=== PATIENT | female | born 1955 | race Caucasian/White ===

== ENCOUNTER 2021-07-29 05:08 | Inpatient (IN) | payer MEDICARE, BC ==
[2021-07-27 14:17] LABS: CLARITY,URINE CLEAR (Clear); COLOR,URINE STRAW (Yellow); GLUCOSE, URINE NEGATIVE (Neg); KETONES,URINE NEGATIVE (Neg); LEUKOCYTE ESTERASE ,URINE NEGATIVE (Neg); NITRITES, URINE NEGATIVE (Neg); OCCULT BLOOD,URINE NEGATIVE (Neg); PROTEIN,URINE NEGATIVE (Neg); UA COLLECTION TYPE CLN CATCH MIDSTREAM; UROBILINOGEN,URINE 0.2 E.U/dL (0.2-1.0)
[2021-07-27 15:20] LABS: BASOPHILS % (AUTO) 0.2 % (0-1); EOSINOPHILS # (AUTO) 0.1 X10'3 (0-0.9); EOSINOPHILS % (AUTO) 1.1 % (0-6); LYMPHOCYTES # (AUTO) 2.6 X10'3 (1.1-4.8); LYMPHOCYTES % (AUTO) 29.5 % (21-51); MEAN CORPUSCULAR HEMOGLOBIN 33.1 PG (27.0-31.0); MEAN CORPUSCULAR HGB CONC 33.2 g/dL (33.0-36.5); MEAN CORPUSCULAR VOLUME 99.6 FL (78-98); MEAN PLATELET VOLUME 7.4 FL (7.4-10.4); MONOCYTES # (AUTO) 0.7 X10'3 (0-0.9); MONOCYTES % (AUTO) 7.7 % (2-12); NEUTROPHILS # (AUTO) 5.4 X10'3 (1.8-7.7); NEUTROPHILS % (AUTO) 61.5 % (42-75); PRE OP HEMATOCRIT 37.3 % (35.0-45.0); PRE OP HEMOGLOBIN 12.4 g/dL (12.0-16.0); PRE OP PLATELET COUNT 326 X10'3 (140-440); RED BLOOD COUNT 3.75 X10'6 (4.20-5.60); RED CELL DISTRIBUTION WIDTH 15.2 % (11.5-14.5)
[2021-07-27 15:29] LABS: PRE OP PROTIME 10.1 SECONDS (9.0-12.0)
[2021-07-27 15:36] LABS: ALBUMIN 3.4 G/DL (3.4-5.0); ALBUMIN/GLOBULIN RATIO 0.9 (1.1-1.5); ALKALINE PHOSPHATASE 83 IU/L (46-116); BLOOD UREA NITROGEN 16 MG/DL (7-18); BUN/CREATININE RATIO 16.8 (6.6-38.0); CALCIUM 8.5 MG/DL (8.5-10.1); CHLORIDE 105 MMOL/L (99-107); CREATININE 0.95 MG/DL (0.40-0.90); PRE OP ALT 31 U/L (30-65); PRE OP ANION GAP 7 (8-16); PRE OP AST 17 U/L (10-37); PRE OP BILIRUB, TOTAL 0.3 MG/DL (0.0-1.0); PRE OP GLUCOSE 108 MG/DL (70-104); PRE OP POTASSIUM 3.8 MMOL/L (3.4-5.1); PRE OP SODIUM 142 MMOL/L (135-145); TOTAL CARBON DIOXIDE 29.8 MMOL/L (24-32); eGFR 59 ML/MIN
[2021-07-27 15:43] LABS: HEMOGLOBIN A1C 6.4 % (4.5-6.2)
[~2021-07-29] VITALS: Ht 172.7 cm; Wt 100.9 kg
[2021-07-29] VITALS (13 sets, daily range): BP systolic 95–128; BP diastolic 52–80
[~2021-07-29 05:08] MED LIST: ATEN-54 PO; BUSP5TAB3 PO; FLUT1DIS20 INH; FURO-150 PO; LISI5TAB22 PO; MELO-100 PO; PARO25TA15 PO; POTA-82 PO; ROSU10TA2 PO; TRAZ-256 PO; UMEC62.5 INH; ringers solution, lacted 1,000 ML IV SCH
[2021-07-29] MEDS ORDERED: LORazepam 2 mg/ml vial IV PRN (05:30)
[2021-07-29] MEDS ORDERED: cefazolin/dext.iso 2gm/50ml 50 ML IV ONE (05:30)
[2021-07-29] MEDS ORDERED: famotidine 20mg tablet PO ONE (05:30)
[2021-07-29] MEDS ORDERED: gabapentin 400mg capsule PO ONE (05:30)
[2021-07-29] MEDS ORDERED: DOCUMENT DATE & TIME OF BETA-BLOCKER PO ONE (05:30)
[2021-07-29] MEDS ORDERED: VANCOMYCIN 1,500MG inj. 1,500 MG in normal saline 500ml IV soln 300 ML IV ONE (05:30)
[2021-07-29] MEDS ORDERED: epiNEPHrine 1 mg/ml inj ONE ×2 (05:40→16:08)
[2021-07-29] MEDS ORDERED: ceFAZolin 1000mg inj ONE (05:40)
[2021-07-29] MEDS ORDERED: SUFENTANIL CITRATE 50 MCG/ML 2ml ampule IV ONE (07:38)
[2021-07-29] MEDS ORDERED: midazolam 1 mg/ML 2ml injection ONE (07:38)
[2021-07-29] MEDS ORDERED: NORepinephrine 8 MG in NS 250 ML BAG (32 mcg/ml) IV ONE ×2 (08:00→08:09)
[2021-07-29] MEDS ORDERED: LIDOcaine 2% (20 mg/ml) 5ml cardiac syringe ONE (08:00)
[2021-07-29] MEDS ORDERED: sodium bicarbonate (8.4%) 1 mEq/ml syringe ONE (08:00)
[2021-07-29] MEDS ORDERED: potassium acetate 2 mEq/1ml inj. IV ONE (08:00)
[2021-07-29] MEDS ORDERED: methylPREDNISolone sod succ 1000mg vial ONE (08:00)
[2021-07-29] MEDS ORDERED: heparin 10,000 units/1 ML INJ ONE (08:00)
[2021-07-29] MEDS ORDERED: magnesium 1 GM/2 ML inj ONE (08:00)
[2021-07-29] MEDS ORDERED: calcium chloride 100 MG/1 ML inj IV ONE (08:00)
[2021-07-29] MEDS ORDERED: aminocaproic acid 250 MG/1 ML inj. ONE (08:00)
[2021-07-29] MEDS ORDERED: albumin (human) 25% 100 ML IV solution IV ONE (08:00)
[2021-07-29] MEDS ORDERED: nitroGLYCERIN in D5W 50mg/250ml (Tridil) infusion IV ONE (08:09)
[2021-07-29] MEDS ORDERED: DOPamine/D5W 400mg/250ml bag IV ONE (08:09)
[2021-07-29] MEDS ORDERED: protamine sulf. 10mg/ml inj. IV ONE (08:09)
[2021-07-29] MEDS ORDERED: isoflurane 100ml inhalation liquid IH ONE (08:09)
[2021-07-29 08:58] LABS: ABG BASE EXCESS -2.8 mmol/L (-2.0-2.0); ABG HCO3 22.4 mmol/L (22.0-26.0); ABG OXYGEN SATURATION 99.5 % (94-97); ABG PCO2 40.7 mmHg (32.0-45.0); ABG PO2 208.2 mmHg (75.0-100.0); CL (ABG) 105 mmol/L (98-110); FCOHb 0.5 % (0.0-3.9); FMetHb 0.3 % (0.0-1.5); FO2Hb 98.7 % (94-97); GLUCOSE (ABG) 145 mg/dl (70-105); IONIZED CA (ABG) 1.16 mmol/L (1.10-1.43); K (ABG) 4.5 mmol/L (3.5-5.0); TOTAL HEMOGLOBIN 12.6 G/dl (12.0-16.0)
[2021-07-29 09:22] LABS: ABG BASE EXCESS VENOUS 0.8 mmol/L (-2.0 - 2.0); ABG HCO3 VENOUS 25.5 mmol/L (21.0-28.0); ABG PO2 VENOUS 38.8 mmHg (25.0-35.0); CL (ABG) 102 mmol/L (98-110); FCOHb VENOUS 0.6 % (0.0- 3.9); FHHb VENOUS 24.7 %; FMetHb VENOUS 0.2 % (0.0 - 0.5); FO2Hb VENOUS 74.5 %; GLUCOSE (ABG) 123 mg/dl (70-105); IONIZED CA (ABG) 0.95 mmol/L (1.10-1.43); K (ABG) 3.7 mmol/L (3.5-5.0); TOTAL HEMOGLOBIN 8.3 G/dl (12.0-16.0)
[2021-07-29 09:26] LABS: ABG BASE EXCESS 0.5 mmol/L (-2.0-2.0); ABG HCO3 24.4 mmol/L (22.0-26.0); ABG OXYGEN SATURATION 99.6 % (94-97); ABG PCO2 35.6 mmHg (32.0-45.0); ABG PO2 402.7 mmHg (75.0-100.0); CL (ABG) 103 mmol/L (98-110); FCOHb 0.4 % (0.0-3.9); FMetHb 0.3 % (0.0-1.5); FO2Hb 98.9 % (94-97); GLUCOSE (ABG) 123 mg/dl (70-105); IONIZED CA (ABG) 0.98 mmol/L (1.10-1.43); K (ABG) 3.8 mmol/L (3.5-5.0); TOTAL HEMOGLOBIN 8.2 G/dl (12.0-16.0)
[2021-07-29] MEDS ORDERED: ipratropium/albuterol 3ml nebule IH PRN (09:55)
[2021-07-29 10:00] LABS: ABG BASE EXCESS -3.7 mmol/L (-2.0-2.0); ABG HCO3 25.5 mmol/L (22.0-26.0); ABG OXYGEN SATURATION 99.4 % (94-97); ABG PO2 248.4 mmHg (75.0-100.0); CL (ABG) 103 mmol/L (98-110); FCOHb 0.3 % (0.0-3.9); FMetHb 0.1 % (0.0-1.5); GLUCOSE (ABG) 132 mg/dl (70-105); IONIZED CA (ABG) 1.12 mmol/L (1.10-1.43); K (ABG) 4.8 mmol/L (3.5-5.0); TOTAL HEMOGLOBIN 9.2 G/dl (12.0-16.0)
[2021-07-29 10:19] LABS: ABG BASE EXCESS 2.6 mmol/L (-2.0-2.0); ABG HCO3 27.3 mmol/L (22.0-26.0); ABG OXYGEN SATURATION 99.5 % (94-97); ABG PO2 335.8 mmHg (75.0-100.0); CL (ABG) 103 mmol/L (98-110); FCOHb 0.4 % (0.0-3.9); FMetHb 0.3 % (0.0-1.5); FO2Hb 98.8 % (94-97); GLUCOSE (ABG) 128 mg/dl (70-105); IONIZED CA (ABG) 1.34 mmol/L (1.10-1.43); K (ABG) 4.7 mmol/L (3.5-5.0); TOTAL HEMOGLOBIN 8.1 G/dl (12.0-16.0)
[2021-07-29 10:40] LABS: ABG BASE EXCESS 2.4 mmol/L (-2.0-2.0); ABG HCO3 26.5 mmol/L (22.0-26.0); ABG OXYGEN SATURATION 99.5 % (94-97); ABG PCO2 38.9 mmHg (32.0-45.0); ABG PO2 333.5 mmHg (75.0-100.0); CL (ABG) 105 mmol/L (98-110); FCOHb 0.3 % (0.0-3.9); FMetHb 0.3 % (0.0-1.5); FO2Hb 98.9 % (94-97); GLUCOSE (ABG) 130 mg/dl (70-105); IONIZED CA (ABG) 1.27 mmol/L (1.10-1.43); K (ABG) 5.8 mmol/L (3.5-5.0); TOTAL HEMOGLOBIN 8.4 G/dl (12.0-16.0)
[2021-07-29 11:03] LABS: ABG BASE EXCESS -0.3 mmol/L (-2.0-2.0); ABG HCO3 24.8 mmol/L (22.0-26.0); ABG OXYGEN SATURATION 99.5 % (94-97); ABG PCO2 42.6 mmHg (32.0-45.0); ABG PO2 312.7 mmHg (75.0-100.0); CL (ABG) 104 mmol/L (98-110); FMetHb 0.3 % (0.0-1.5); FO2Hb 99.2 % (94-97); GLUCOSE (ABG) 140 mg/dl (70-105); IONIZED CA (ABG) 1.24 mmol/L (1.10-1.43); TOTAL HEMOGLOBIN 9.3 G/dl (12.0-16.0)
[2021-07-29 11:47] LABS: ACTIVATED CLOTTING TIME 108 SEC (101-148)
[2021-07-29 11:47] LABS: ABG BASE EXCESS VENOUS 0.8 mmol/L (-2.0 - 2.0); ABG PCO2 VENOUS 52.1 mmHg (38.0-51.0); ABG PO2 VENOUS 55.7 mmHg (25.0-35.0); CL (ABG) 106 mmol/L (98-110); FCOHb VENOUS 0.3 % (0.0- 3.9); FHHb VENOUS 14.4 %; FMetHb VENOUS 0.3 % (0.0 - 0.5); GLUCOSE (ABG) 188 mg/dl (70-105); K (ABG) 4.5 mmol/L (3.5-5.0)
[2021-07-29] MEDS ORDERED: niCARDipine-NS 40mg/200ml IVPB 200 ML IV PRN (11:55)
[2021-07-29] MEDS ORDERED: HYDROcodone/acetaminophen 10/325mg tab PO PRN (11:55)
[2021-07-29] MEDS ORDERED: acetaminophen 325mg tablet PO PRN ×2 (11:55)
[2021-07-29] MEDS ORDERED: DOBUTamine-DoBUTrex 500mg/D5W 250 ML IV PRN (11:55)
[2021-07-29] MEDS ORDERED: insulin glargine (Lantus) pen - multi-dose SQ PRN (11:55)
[2021-07-29] MEDS ORDERED: Neutra Phos packet PO PRN (11:55)
[2021-07-29] MEDS ORDERED: potassium CL 10mEq/100ml bag 100 ML IV PRN (11:55)
[2021-07-29] MEDS ORDERED: magnesium hydroxide 30ml (MOM) UD suspension PO PRN (11:55)
[2021-07-29] MEDS ORDERED: magnesium citrate 296ml oral solution PO PRN (11:55)
[2021-07-29] MEDS ORDERED: morphine 4 MG/ML inj SYRINge IV PRN (11:55)
[2021-07-29] MEDS ORDERED: metoclopramide 5 mg/ml inj IV PRN (11:55)
[2021-07-29] MEDS ORDERED: potassium Cl 40MEQ/250ML bag 250 ML IV PRN (11:55)
[2021-07-29] MEDS ORDERED: magnesium 4gm in 100ml NS 100 ML IV PRN (11:55)
[2021-07-29] MEDS ORDERED: dextrose 50%-water 50ml dispensing syringe IV PRN (11:55)
[2021-07-29] MEDS ORDERED: pantoprazole 40 MG vial IV ONE (11:55)
[2021-07-29] MEDS ORDERED: potassium phosphate inj 15 MMOL in dextrose 5%-water 250 ML IV PRN (11:55)
[2021-07-29] MEDS ORDERED: potassium Cl 20mEq/100mL bag 100 ML IV PRN (11:55)
[2021-07-29] MEDS ORDERED: potassium phosphate inj 30 MMOL in dextrose 5%-water 250 ML IV PRN (11:55)
[2021-07-29] MEDS ORDERED: magnesium 2GM in 50ml NS 50 ML IV PRN (11:55)
[2021-07-29] MEDS ORDERED: potassium Cl 20 mEq SR tablet PO PRN (11:55)
[2021-07-29] MEDS ORDERED: bisacodyl 10mg suppository rectal RC PRN (11:55)
[2021-07-29] MEDS: Insulin Reg/NS 100units/100mL 100 ML IV SCH ×2 (11:55→21:14)
[2021-07-29] MEDS ORDERED: potassium Cl 40MEQ/1/2NS 520ml 520 ML IV PRN (11:55)
[2021-07-29] MEDS ORDERED: mineral oil 133ml enema RC PRN (11:55)
--- NOTE | 2021-07-29 12:18 | NUR ---
Received to room [], accompanied by MDs [] and surgical crew. Placed on ventilator, to design/animation instructor, arterial line and PA line pressure monitored. Chest tubes to suction at 20 cm. Potts cath to gravity drainage. Dressings are dry and intact. See assessment record. All vasoactive drugs are infusing via central line.
[2021-07-29 12:19] LABS: PARTIAL THROMBOPLASTIN TIME 24 SECONDS (22-32)
[2021-07-29 12:22] LABS: BASOPHILS % (AUTO) 0.1 % (0-1); EOSINOPHILS # (AUTO) 0.1 X10'3 (0-0.9); EOSINOPHILS % (AUTO) 0.3 % (0-6); HEMATOCRIT 25.4 % (35.0-45.0); HEMOGLOBIN 8.3 g/dl (12.0-16.0); LYMPHOCYTES # (AUTO) 3.3 X10'3 (1.1-4.8); LYMPHOCYTES % (AUTO) 15.3 % (21-51); MEAN CORPUSCULAR HEMOGLOBIN 32.7 PG (27.0-31.0); MEAN CORPUSCULAR HGB CONC 32.8 g/dL (33.0-36.5); MEAN CORPUSCULAR VOLUME 99.7 FL (78-98); MEAN PLATELET VOLUME 7.7 FL (7.4-10.4); MONOCYTES # (AUTO) 0.5 X10'3 (0-0.9); MONOCYTES % (AUTO) 2.2 % (2-12); NEUTROPHILS # (AUTO) 17.5 X10'3 (1.8-7.7); NEUTROPHILS % (AUTO) 82.1 % (42-75); PLATELET COUNT 206 X10'3 (140-440); RED BLOOD COUNT 2.55 X10'6 (4.20-5.60); RED CELL DISTRIBUTION WIDTH 15.2 % (11.5-14.5); WHITE BLOOD COUNT 21.3 X10'3 (4.5-11.0)
[2021-07-29 12:40] LABS: ABG BASE EXCESS 0.9 mmol/L (-2.0-2.0); ABG HCO3 25.8 mmol/L (22.0-26.0); ABG OXYGEN SATURATION 95.3 % (94-97); ABG PCO2 (T) 40.7 mmHg (32.0-45.0); ABG PO2 (T) 78.1 mmHg (75.0-100.0); FCOHb 0.3 % (0.0-3.9); FMetHb 0.4 % (0.0-1.5); FO2Hb 94.6 % (94-97); PATIENT TEMPERATURE 36.2; PEEP 5 cm H2O; RESPIRATORY RATE 12 b/min; TIDAL VOLUME 600 mL; TOTAL HEMOGLOBIN 11.2 G/dl (12.0-16.0)
[2021-07-29 12:58] LABS: ALANINE AMINOTRANSFERASE 45 U/L (12-78); ALBUMIN 2.9 G/DL (3.4-5.0); ALBUMIN/GLOBULIN RATIO 1.3 (1.1-1.5); ALKALINE PHOSPHATASE 71 IU/L (46-116); ANION GAP 8 (8-16); BILIRUBIN,TOTAL 0.8 MG/DL (0.1-1.0); BLOOD UREA NITROGEN 13 MG/DL (7-18); BUN/CREATININE RATIO 11.8 (6.6-38.0); CALCIUM 9.3 MG/DL (8.5-10.1); CHLORIDE 108 MMOL/L (99-107); GLUCOSE 186 MG/DL (70-104); MAGNESIUM 3.5 MG/DL (1.5-2.4); SODIUM 143 MMOL/L (135-145); TOTAL CARBON DIOXIDE 26.6 MMOL/L (24-32); TOTAL PROTEIN 5.2 G/DL (6.4-8.2); eGFR 50 ML/MIN
[2021-07-29 13:00] LABS: ASPARTATE AMINO TRANSFERASE 90 U/L (10-37); PHOSPHORUS 3.2 MG/DL (2.3-4.5); POTASSIUM 4.3 MMOL/L (3.5-5.1)
--- NOTE | 2021-07-29 13:44 | NUR ---
Nutrition Consult: Pt s/p MV replacement today per EMR; would benefit from high protein ed once appropriate. Will monitor for nutrition intervention needs post-op. Addendum: 07/29/21 at [address] Amended: Links added.
[2021-07-29] MEDS: ipratropium/albuterol 3ml nebule IH SCH ×2 (15:00→21:00)
[2021-07-29] MEDS ORDERED: albuterol 2.5 MG/3 ML nebule NEB SCH (15:00)
[2021-07-29] MEDS: gabapentin 300mg capsule PO SCH ×2 (15:34→20:13)
[2021-07-29] MEDS: sodium chloride 0.45% 1,000 ML IV SCH (15:35)
[2021-07-29] MEDS ORDERED: DOPamine 400mg/D5W 250ml 250 ML IV PRN (15:55)
[2021-07-29] MEDS ORDERED: NORepinephrine 8mg/ 250ml NS 250 ML IV PRN (15:55)
[2021-07-29] MEDS ORDERED: nitroGLYCERIN-Tridil 50MG/D5W 250 ML IV PRN (15:55)
--- NOTE | 2021-07-29 16:07 | NUR ---
pt remains drowsy, opens eyes briefly, then back to sleep. able to titrate levo off. ci 2.[address] hopkins re drop in hgb on labs.
[2021-07-29] MEDS ORDERED: LIDOcaine 2% (20mg/ml) 5ml vial ONE (16:08)
[2021-07-29] MEDS ORDERED: etomidate 2mg/ml inj. ONE (16:08)
[2021-07-29] MEDS ORDERED: acetaminophen 1,000mg/100ml IV 100 ML IV ONE (16:08)
[2021-07-29] MEDS ORDERED: rocuronium 10mg/ml inj IV ONE (16:08)
[2021-07-29] MEDS ORDERED: phenylephrine 10mg/ml inj. ONE (16:08)
[2021-07-29] MEDS: ceFAZolin/D5W- 1GM premix 50 ML IV SCH (17:06)
[2021-07-29] MEDS: amiodarone/D5 360MG/200ML BAG 200 ML IV SCH (17:10)
[2021-07-29 18:30] LABS: BASOPHILS % (AUTO) 0.1 % (0-1); EOSINOPHILS % (AUTO) 0 % (0-6); HEMATOCRIT 32.4 % (35.0-45.0); HEMOGLOBIN 11.1 g/dl (12.0-16.0); LYMPHOCYTES # (AUTO) 0.7 X10'3 (1.1-4.8); MEAN CORPUSCULAR HEMOGLOBIN 33.4 PG (27.0-31.0); MEAN CORPUSCULAR HGB CONC 34.3 g/dL (33.0-36.5); MEAN CORPUSCULAR VOLUME 97.3 FL (78-98); MEAN PLATELET VOLUME 7.2 FL (7.4-10.4); MONOCYTES # (AUTO) 0.7 X10'3 (0-0.9); MONOCYTES % (AUTO) 4.7 % (2-12); NEUTROPHILS # (AUTO) 13.4 X10'3 (1.8-7.7); NEUTROPHILS % (AUTO) 90.2 % (42-75); PLATELET COUNT 205 X10'3 (140-440); RED BLOOD COUNT 3.33 X10'6 (4.20-5.60); RED CELL DISTRIBUTION WIDTH 15.1 % (11.5-14.5); WHITE BLOOD COUNT 14.8 X10'3 (4.5-11.0)
--- NOTE | 2021-07-29 18:30 | NUR ---
I have received report and assumed care of pt. Pt resting in bed rise and fall of chest cavity equile and symmetrical, Chest tube x1 to mediastinal, no air leak noted, no crepitus noted. Pt wakes up to verbal stimuli but falls back to sleep easily. Dobutamine in place to keep CI greater then 2.[address] to keep MAP greater then 60, levophed in place to keep MAP greater then 60 as well. All vasoactive medication via CVL. Weaning ventilator and vasoactive medication as tolerated.
[2021-07-29 18:45] LABS: ALBUMIN 2.8 G/DL (3.4-5.0); ANION GAP 7 (8-16); BLOOD UREA NITROGEN 13 MG/DL (7-18); BUN/CREATININE RATIO 10.5 (6.6-38.0); CALCIUM 8.6 MG/DL (8.5-10.1); CHLORIDE 111 MMOL/L (99-107); CREATININE 1.24 MG/DL (0.40-0.90); GLUCOSE 127 MG/DL (70-104); MAGNESIUM 2.5 MG/DL (1.5-2.4); PHOSPHORUS 1.8 MG/DL (2.3-4.5); POTASSIUM 3.6 MMOL/L (3.5-5.1); SODIUM 144 MMOL/L (135-145); TOTAL CARBON DIOXIDE 26.2 MMOL/L (24-32); eGFR 43 ML/MIN
[2021-07-29] MEDS: mupirocin 2% nasal ointment 1gm UD NS SCH (20:00)
[2021-07-29] MEDS ORDERED: non-formulary drug (Fluticasone/Salmeterol (Advair 250-50 Diskus) 1 PUFFS) INH SCH (20:00)
[2021-07-29] MEDS: sennosides/docusate sodium tablet PO SCH (20:00)
[2021-07-29] MEDS: vancomycin/NS 1 GM ADD-VANTAGE 250 ML IV SCH (20:12)
[2021-07-29] MEDS: busPIRone 15mg tablet PO SCH (20:13)
[2021-07-29] MEDS: albumin (Human) 5% 250ml 250 ML IV PRN (20:16)
[2021-07-29] MEDS: budesonide 0.5mg/2ml UD nebule IH SCH (21:00)
[2021-07-29] MEDS: traZODone 50mg tablet PO SCH (21:00)
[2021-07-29] MEDS: atorvastatin 10mg tablet PO SCH (21:00)
[2021-07-29] MEDS: ondansetron/PF 4mg/2ml inj IV PRN (21:22)
[2021-07-30] VITALS (23 sets, daily range): BP systolic 94–139; BP diastolic 50–78
[2021-07-30] MEDS: ondansetron/PF 4mg/2ml inj IV PRN (00:22)
[2021-07-30] MEDS: ceFAZolin/D5W- 1GM premix 50 ML IV SCH ×3 (00:22→16:02)
[2021-07-30 01:49] LABS: ABG BASE EXCESS -1.8 mmol/L (-2.0-2.0); ABG HCO3 23.3 mmol/L (22.0-26.0); ABG OXYGEN SATURATION 93.1 % (94-97); ABG PCO2 (T) 40.7 mmHg (32.0-45.0); ABG PO2 (T) 70.2 mmHg (75.0-100.0); FCOHb 0.3 % (0.0-3.9); FMetHb 0.3 % (0.0-1.5); FO2Hb 92.5 % (94-97); TOTAL HEMOGLOBIN 10.8 G/dl (12.0-16.0)
--- NOTE | 2021-07-30 02:00 | NUR ---
Pt passed weaning trial, see respitory therapy for more details, pt placed on 4Liters N/C. Pt tolerated extubation well continuing to titrate dobutamine and dopamine as tolerated
[2021-07-30] MEDS: ipratropium/albuterol 3ml nebule IH SCH ×5 (02:15→20:38)
[2021-07-30] MEDS ORDERED: ipratropium 0.5 MG/2.5ML nebule NEB SCH (03:00)
[2021-07-30 03:59] LABS: BASOPHILS % (AUTO) 0.1 % (0-1); EOSINOPHILS % (AUTO) 0 % (0-6); HEMATOCRIT 30.5 % (35.0-45.0); HEMOGLOBIN 10.3 g/dl (12.0-16.0); LYMPHOCYTES # (AUTO) 0.8 X10'3 (1.1-4.8); LYMPHOCYTES % (AUTO) 4.9 % (21-51); MEAN CORPUSCULAR HEMOGLOBIN 33.3 PG (27.0-31.0); MEAN CORPUSCULAR HGB CONC 33.8 g/dL (33.0-36.5); MEAN CORPUSCULAR VOLUME 98.3 FL (78-98); MEAN PLATELET VOLUME 7.7 FL (7.4-10.4); MONOCYTES # (AUTO) 0.9 X10'3 (0-0.9); MONOCYTES % (AUTO) 5.8 % (2-12); NEUTROPHILS # (AUTO) 14.4 X10'3 (1.8-7.7); NEUTROPHILS % (AUTO) 89.2 % (42-75); PLATELET COUNT 166 X10'3 (140-440); RED CELL DISTRIBUTION WIDTH 15.5 % (11.5-14.5); WHITE BLOOD COUNT 16.2 X10'3 (4.5-11.0)
[2021-07-30 04:14] LABS: PARTIAL THROMBOPLASTIN TIME 23 SECONDS (22-32)
[2021-07-30 04:56] LABS: ALANINE AMINOTRANSFERASE 42 U/L (12-78); ALBUMIN 3.1 G/DL (3.4-5.0); ALBUMIN/GLOBULIN RATIO 1.3 (1.1-1.5); ALKALINE PHOSPHATASE 51 IU/L (46-116); ANION GAP 8 (8-16); ASPARTATE AMINO TRANSFERASE 96 U/L (10-37); BILIRUBIN,TOTAL 0.3 MG/DL (0.1-1.0); BLOOD UREA NITROGEN 16 MG/DL (7-18); CALCIUM 8.1 MG/DL (8.5-10.1); CHLORIDE 111 MMOL/L (99-107); GLUCOSE 127 MG/DL (70-104); MAGNESIUM 2.2 MG/DL (1.5-2.4); PHOSPHORUS 4.8 MG/DL (2.3-4.5); POTASSIUM 4.5 MMOL/L (3.5-5.1); SODIUM 144 MMOL/L (135-145); TOTAL CARBON DIOXIDE 25.5 MMOL/L (24-32); TOTAL PROTEIN 5.4 G/DL (6.4-8.2); eGFR 55 ML/MIN
[2021-07-30] MEDS: amiodarone/D5 360MG/200ML BAG 200 ML IV SCH ×2 (05:08→16:25)
--- NOTE | 2021-07-30 06:12 | NUR ---
report given to rec rn plan of care reviewed
[2021-07-30] MEDS: budesonide 0.5mg/2ml UD nebule IH SCH ×2 (08:30→20:38)
[2021-07-30] MEDS: aspirin 325mg tablet, delayed-release (Ecotrin) PO SCH (08:57)
[2021-07-30] MEDS: metoprolol tartrate 12.5mg (1/2 tablet) PO SCH ×2 (08:57→20:28)
[2021-07-30] MEDS: busPIRone 15mg tablet PO SCH ×2 (08:58→20:28)
[2021-07-30] MEDS: gabapentin 300mg capsule PO SCH ×3 (08:58→20:28)
[2021-07-30] MEDS: sennosides/docusate sodium tablet PO SCH ×2 (08:58→20:28)
[2021-07-30] MEDS: PARoxetine 20mg tablet PO SCH (08:58)
[2021-07-30] MEDS: mupirocin 2% nasal ointment 1gm UD NS SCH ×2 (08:59→20:28)
[2021-07-30] MEDS: vancomycin/NS 1 GM ADD-VANTAGE 250 ML IV SCH ×2 (09:00→20:27)
[2021-07-30] MEDS ORDERED: albumin (Human) 5% 250ml 250 ML IV ONE (10:35)
[2021-07-30] MEDS: morphine 4 MG/ML inj SYRINge IV PRN (13:18)
[2021-07-30] MEDS: albumin (Human) 5% 250ml 250 ML IV PRN (14:03)
[2021-07-30] MEDS ORDERED: ondansetron 4mg rapidly disintigrating tab PO PRN (16:00)
[2021-07-30] MEDS: traZODone 50mg tablet PO SCH (20:27)
[2021-07-30] MEDS: lactobacillus rhamnosus 10,000 MMU CELLS/CAPSULE PO SCH (20:27)
[2021-07-30] MEDS: atorvastatin 10mg tablet PO SCH (20:28)
[2021-07-30] MEDS: Insulin Reg/NS 100units/100mL 100 ML IV SCH (20:38)
[2021-07-31] VITALS (22 sets, daily range): BP systolic 96–132; BP diastolic 49–86
[2021-07-31] MEDS: ceFAZolin/D5W- 1GM premix 50 ML IV SCH (00:30)
[2021-07-31] MEDS: ipratropium/albuterol 3ml nebule IH SCH ×4 (02:30→22:10)
[2021-07-31] MEDS: HYDROcodone/acetaminophen 10/325mg tab PO PRN ×2 (03:35→09:28)
[2021-07-31 03:48] LABS: BASOPHILS % (AUTO) 0.1 % (0-1); EOSINOPHILS % (AUTO) 0 % (0-6); HEMATOCRIT 26.1 % (35.0-45.0); HEMOGLOBIN 8.6 g/dl (12.0-16.0); LYMPHOCYTES # (AUTO) 1.1 X10'3 (1.1-4.8); LYMPHOCYTES % (AUTO) 5.1 % (21-51); MEAN CORPUSCULAR HEMOGLOBIN 32.9 PG (27.0-31.0); MEAN CORPUSCULAR HGB CONC 33.1 g/dL (33.0-36.5); MEAN CORPUSCULAR VOLUME 99.4 FL (78-98); MEAN PLATELET VOLUME 8.9 FL (7.4-10.4); MONOCYTES # (AUTO) 1.8 X10'3 (0-0.9); MONOCYTES % (AUTO) 8.6 % (2-12); NEUTROPHILS # (AUTO) 18.2 X10'3 (1.8-7.7); NEUTROPHILS % (AUTO) 86.2 % (42-75); PLATELET COUNT 175 X10'3 (140-440); RED BLOOD COUNT 2.63 X10'6 (4.20-5.60); RED CELL DISTRIBUTION WIDTH 15.7 % (11.5-14.5); WHITE BLOOD COUNT 21.1 X10'3 (4.5-11.0)
[2021-07-31] MEDS: amiodarone/D5 360MG/200ML BAG 200 ML IV SCH (04:17)
[2021-07-31 04:18] LABS: GLUCOSE 153 MG/DL (70-104)
[2021-07-31 04:19] LABS: ANION GAP 10 (8-16); BLOOD UREA NITROGEN 20 MG/DL (7-18); CALCIUM 8.1 MG/DL (8.5-10.1); CHLORIDE 104 MMOL/L (99-107); CREATININE 0.91 MG/DL (0.40-0.90); MAGNESIUM 2.1 MG/DL (1.5-2.4); PHOSPHORUS 3.6 MG/DL (2.3-4.5); POTASSIUM 4.8 MMOL/L (3.5-5.1); SODIUM 138 MMOL/L (135-145); TOTAL CARBON DIOXIDE 24.3 MMOL/L (24-32); eGFR 62 ML/MIN
[2021-07-31 04:45] LABS: PLATELET ESTIMATE NORMAL; TOTAL CELLS COUNTED 100
[2021-07-31 04:46] LABS: ANISOCYTOSIS 1+
[2021-07-31] MEDS: lactobacillus rhamnosus 10,000 MMU CELLS/CAPSULE PO SCH ×2 (09:01→20:01)
[2021-07-31] MEDS: metoprolol tartrate 12.5mg (1/2 tablet) PO SCH ×2 (09:01→20:01)
[2021-07-31] MEDS: aspirin 325mg tablet, delayed-release (Ecotrin) PO SCH (09:01)
[2021-07-31] MEDS: PARoxetine 20mg tablet PO SCH (09:02)
[2021-07-31] MEDS: gabapentin 300mg capsule PO SCH (09:02)
[2021-07-31] MEDS: busPIRone 15mg tablet PO SCH ×2 (09:02→20:01)
[2021-07-31] MEDS: sennosides/docusate sodium tablet PO SCH ×2 (09:02→20:01)
[2021-07-31] MEDS: amiodarone 200mg tablet PO SCH ×2 (09:02→20:02)
[2021-07-31] MEDS: mupirocin 2% nasal ointment 1gm UD NS SCH (09:03)
[2021-07-31] MEDS: budesonide 0.5mg/2ml UD nebule IH SCH ×2 (09:07→22:10)
[2021-07-31] MEDS: pantoprazole 40mg Tablet.DR PO SCH (09:27)
[2021-07-31] MEDS: sodium chloride 0.45% 1,000 ML IV SCH ×2 (11:55→19:28)
[2021-07-31] MEDS: morphine 4 MG/ML inj SYRINge IV PRN (18:49)
[2021-07-31] MEDS: atorvastatin 10mg tablet PO SCH (20:01)
[2021-07-31] MEDS: traZODone 50mg tablet PO SCH (20:02)
[2021-08-01] VITALS (13 sets, daily range): BP systolic 94–123; BP diastolic 51–84
[2021-08-01 03:18] LABS: BASOPHILS % (AUTO) 0.1 % (0-1); EOSINOPHILS % (AUTO) 0 % (0-6); HEMATOCRIT 27.4 % (35.0-45.0); LYMPHOCYTES # (AUTO) 1.9 X10'3 (1.1-4.8); LYMPHOCYTES % (AUTO) 9.9 % (21-51); MEAN CORPUSCULAR HEMOGLOBIN 32.8 PG (27.0-31.0); MEAN CORPUSCULAR HGB CONC 32.9 g/dL (33.0-36.5); MEAN CORPUSCULAR VOLUME 99.7 FL (78-98); MEAN PLATELET VOLUME 8.7 FL (7.4-10.4); MONOCYTES % (AUTO) 10.3 % (2-12); NEUTROPHILS # (AUTO) 15.2 X10'3 (1.8-7.7); NEUTROPHILS % (AUTO) 79.7 % (42-75); PLATELET COUNT 198 X10'3 (140-440); RED BLOOD COUNT 2.75 X10'6 (4.20-5.60); RED CELL DISTRIBUTION WIDTH 15.2 % (11.5-14.5); WHITE BLOOD COUNT 19.1 X10'3 (4.5-11.0)
[2021-08-01 03:30] LABS: ALBUMIN 2.9 G/DL (3.4-5.0); ANION GAP 8 (8-16); BLOOD UREA NITROGEN 22 MG/DL (7-18); BUN/CREATININE RATIO 26.2 (6.6-38.0); CHLORIDE 104 MMOL/L (99-107); CREATININE 0.84 MG/DL (0.40-0.90); GLUCOSE 159 MG/DL (70-104); MAGNESIUM 2.2 MG/DL (1.5-2.4); PHOSPHORUS 3.2 MG/DL (2.3-4.5); SODIUM 139 MMOL/L (135-145); TOTAL CARBON DIOXIDE 26.7 MMOL/L (24-32); eGFR 68 ML/MIN
--- NOTE | 2021-08-01 03:55 | NUR ---
Pt sletp throughout the night, AM care offered but refused at this time and requests it to be done in AM. IV fluid at KVO infusing well. Pt denied any discomfort.
--- NOTE | 2021-08-01 03:58 | NUR ---
Pt complaints of pain to surgical site; IV medication given.
[2021-08-01] MEDS: ipratropium/albuterol 3ml nebule IH SCH ×3 (04:37→20:04)
[2021-08-01] MEDS: morphine 4 MG/ML inj SYRINge IV PRN (05:17)
[2021-08-01] MEDS: Insulin Reg/NS 100units/100mL 100 ML IV SCH (06:35)
[2021-08-01] MEDS ORDERED: potassium Cl 20 mEq SR tablet PO PRN (07:40)
[2021-08-01] MEDS ORDERED: potassium Cl 40MEQ/250ML bag 250 ML IV PRN (07:40)
[2021-08-01] MEDS ORDERED: potassium Cl 40MEQ/1/2NS 520ml 520 ML IV PRN (07:40)
[2021-08-01] MEDS ORDERED: magnesium 4gm in 100ml NS 100 ML IV PRN (07:40)
[2021-08-01] MEDS ORDERED: magnesium 2GM in 50ml NS 50 ML IV PRN (07:40)
[2021-08-01] MEDS ORDERED: potassium Cl 20mEq/100mL bag 100 ML IV PRN (07:40)
[2021-08-01] MEDS ORDERED: potassium CL 10mEq/100ml bag 100 ML IV PRN (07:40)
[2021-08-01] MEDS: potassium Cl 20 mEq SR tablet PO SCH ×2 (08:00→19:32)
[2021-08-01] MEDS: magnesium Cl slow-release 64mg tablet PO SCH ×2 (08:00→19:35)
[2021-08-01] MEDS: lactose-reduced food (Ensure High Protein) 237ml bottle PO SCH ×3 (08:00→18:00)
[2021-08-01] MEDS: aspirin 325mg tablet, delayed-release (Ecotrin) PO SCH (08:27)
[2021-08-01] MEDS: busPIRone 15mg tablet PO SCH ×2 (08:27→19:35)
[2021-08-01] MEDS: sennosides/docusate sodium tablet PO SCH ×2 (08:27→19:35)
[2021-08-01] MEDS: lactobacillus rhamnosus 10,000 MMU CELLS/CAPSULE PO SCH ×2 (08:27→19:35)
[2021-08-01] MEDS: pantoprazole 40mg Tablet.DR PO SCH (08:27)
[2021-08-01] MEDS: PARoxetine 20mg tablet PO SCH (08:27)
[2021-08-01] MEDS: metoprolol tartrate 12.5mg (1/2 tablet) PO SCH ×2 (08:27→19:36)
[2021-08-01] MEDS: amiodarone 200mg tablet PO SCH ×2 (08:27→19:35)
[2021-08-01 08:38] LABS: ACT @ 1.70 U 283 SEC (193-297); ACT @ 2.84 U 382 SEC (260-420); BASELINE ACT 147 SEC (101-148); PATIENT WEIGHT 86.0k KG
[2021-08-01] MEDS: budesonide 0.5mg/2ml UD nebule IH SCH ×2 (09:43→20:04)
[2021-08-01 11:09] LABS: ABG PCO2 72.8 mmHg (32.0-45.0)
--- NOTE | 2021-08-01 11:20 | NUR ---
Nutrition Consult: Provided pt w/ written and verbal high protein diet education w/ RD contact info. Pt receptive of info. Addendum: 08/01/21 at [address] Amended: Links added.
--- NOTE | 2021-08-01 11:43 | NUR ---
report called to lizabeth on pcu
--- NOTE | 2021-08-01 12:17 | NUR ---
transferred to Fili Song RN at bedside
[2021-08-01] MEDS: HYDROcodone/acetaminophen 10/325mg tab PO PRN ×2 (13:32→19:36)
--- NOTE | 2021-08-01 18:26 | NUR ---
Problems reprioritized. Patient report given, questions answered & plan of care reviewed with MAI OTT.
[2021-08-01] MEDS: traZODone 50mg tablet PO SCH (20:44)
[2021-08-01] MEDS: atorvastatin 10mg tablet PO SCH (20:44)
[2021-08-02 02:00] VITALS: BP 104/68
[2021-08-02 05:59] LABS: BASOPHILS % (AUTO) 0.2 % (0-1); EOSINOPHILS % (AUTO) 0.1 % (0-6); HEMATOCRIT 26.7 % (35.0-45.0); HEMOGLOBIN 8.9 g/dl (12.0-16.0); LYMPHOCYTES # (AUTO) 1.8 X10'3 (1.1-4.8); LYMPHOCYTES % (AUTO) 12.7 % (21-51); MEAN CORPUSCULAR HGB CONC 33.3 g/dL (33.0-36.5); MEAN PLATELET VOLUME 8.4 FL (7.4-10.4); MONOCYTES # (AUTO) 1.5 X10'3 (0-0.9); MONOCYTES % (AUTO) 10.3 % (2-12); NEUTROPHILS % (AUTO) 76.7 % (42-75); PLATELET COUNT 257 X10'3 (140-440); RED CELL DISTRIBUTION WIDTH 15.2 % (11.5-14.5); WHITE BLOOD COUNT 14.4 X10'3 (4.5-11.0)
[2021-08-02 06:00] LABS: ALBUMIN 2.7 G/DL (3.4-5.0); ANION GAP 5 (8-16); BLOOD UREA NITROGEN 22 MG/DL (7-18); BUN/CREATININE RATIO 26.8 (6.6-38.0); CALCIUM 8.1 MG/DL (8.5-10.1); CHLORIDE 105 MMOL/L (99-107); CREATININE 0.82 MG/DL (0.40-0.90); GLUCOSE 145 MG/DL (70-104); POTASSIUM 4.8 MMOL/L (3.5-5.1); SODIUM 142 MMOL/L (135-145); TOTAL CARBON DIOXIDE 32.4 MMOL/L (24-32); eGFR 70 ML/MIN
--- NOTE | 2021-08-02 06:17 | NUR ---
Problems reprioritized. Patient report given, questions answered & plan of care reviewed with Avril OTT .
[2021-08-02 07:00] VITALS: BP 110/76
--- NOTE | 2021-08-02 07:12 | NUR ---
Patient in room PCU 3022. I have received report from Tati OTT and had the opportunity to ask questions and assume patient care. Pt semi fowlers in bed, HOB to 35 degrees, chest rising and falling evenly. Safety measures in place. no s/sx acute distress.
[2021-08-02] MEDS ORDERED: furosemide 40mg/4ml inj IV ONE (07:35)
[2021-08-02 08:17] LABS: ANISOCYTOSIS 1+; PLATELET ESTIMATE NORMAL
[2021-08-02 08:18] LABS: STOMATOCYTES FEW
[2021-08-02] MEDS: magnesium Cl slow-release 64mg tablet PO SCH ×2 (08:37→21:18)
[2021-08-02] MEDS: lactobacillus rhamnosus 10,000 MMU CELLS/CAPSULE PO SCH ×2 (08:37→21:17)
[2021-08-02] MEDS: pantoprazole 40mg Tablet.DR PO SCH (08:38)
[2021-08-02] MEDS: aspirin 325mg tablet, delayed-release (Ecotrin) PO SCH (08:38)
[2021-08-02] MEDS: potassium Cl 20 mEq SR tablet PO SCH ×2 (08:43→21:19)
[2021-08-02] MEDS: sennosides/docusate sodium tablet PO SCH ×2 (08:43→21:18)
[2021-08-02] MEDS: apixaban 5mg tablet PO SCH ×2 (08:43→21:19)
[2021-08-02] MEDS: metoprolol tartrate 12.5mg (1/2 tablet) PO SCH ×2 (08:43→21:18)
[2021-08-02] MEDS: amiodarone 200mg tablet PO SCH ×2 (08:44→21:19)
[2021-08-02] MEDS: busPIRone 15mg tablet PO SCH ×2 (08:44→21:19)
[2021-08-02] MEDS: lactose-reduced food (Ensure High Protein) 237ml bottle PO SCH ×3 (08:49→18:00)
[2021-08-02] MEDS: budesonide 0.5mg/2ml UD nebule IH SCH ×2 (08:59→20:20)
[2021-08-02] MEDS: ipratropium/albuterol 3ml nebule IH SCH ×3 (09:00→20:20)
--- NOTE | 2021-08-02 14:43 | NUR ---
Initial: Pt s/p MV replacement 07/29. Currently on Regular/NCS diet w/ low PO intake, avg 33% x3 documented meals and 75% x2 documented ONS pending further PO trends. LBM 08/01 following previous 6 day constipation w/ routine and PRN bowel care. Will continue to monitor PO trends and make recommendations as appropriate. Recs: 1. Continue Regular/NCS diet as tolerated 2. Ensure High Protein TID 3. Bowel care per rx 4. Weekly wts Addendum: 08/02/21 at [address] Amended: Links added.
[2021-08-02] MEDS: PARoxetine 20mg tablet PO SCH (16:14)
[2021-08-02 18:23] VITALS: BP 129/64
--- NOTE | 2021-08-02 18:55 | NUR ---
Problems reprioritized. Patient report given, questions answered & plan of care reviewed with Tati OTT. Pt sitting up in bed visiting with .
[2021-08-02] MEDS: HYDROcodone/acetaminophen 10/325mg tab PO PRN (21:18)
[2021-08-02] MEDS: traZODone 50mg tablet PO SCH (21:18)
[2021-08-02] MEDS: atorvastatin 10mg tablet PO SCH (21:19)
[2021-08-02 22:00] VITALS: BP 95/62
[2021-08-03 02:00] VITALS: BP 94/63
[2021-08-03] MEDS: ipratropium/albuterol 3ml nebule IH SCH (03:00)
[2021-08-03 06:18] LABS: BASOPHILS % (AUTO) 0.2 % (0-1); EOSINOPHILS # (AUTO) 0.1 X10'3 (0-0.9); EOSINOPHILS % (AUTO) 0.4 % (0-6); HEMATOCRIT 27.4 % (35.0-45.0); HEMOGLOBIN 9.4 g/dl (12.0-16.0); LYMPHOCYTES # (AUTO) 2.2 X10'3 (1.1-4.8); LYMPHOCYTES % (AUTO) 15.7 % (21-51); MEAN CORPUSCULAR HEMOGLOBIN 33.5 PG (27.0-31.0); MEAN CORPUSCULAR HGB CONC 34.1 g/dL (33.0-36.5); MEAN CORPUSCULAR VOLUME 98.3 FL (78-98); MEAN PLATELET VOLUME 7.7 FL (7.4-10.4); MONOCYTES # (AUTO) 1.6 X10'3 (0-0.9); MONOCYTES % (AUTO) 11.2 % (2-12); NEUTROPHILS # (AUTO) 10.3 X10'3 (1.8-7.7); NEUTROPHILS % (AUTO) 72.5 % (42-75); PLATELET COUNT 364 X10'3 (140-440); RED BLOOD COUNT 2.79 X10'6 (4.20-5.60); WHITE BLOOD COUNT 14.3 X10'3 (4.5-11.0)
[2021-08-03 06:30] LABS: ALBUMIN 2.9 G/DL (3.4-5.0); ANION GAP 7 (8-16); BLOOD UREA NITROGEN 20 MG/DL (7-18); BUN/CREATININE RATIO 25.3 (6.6-38.0); CALCIUM 8.6 MG/DL (8.5-10.1); CHLORIDE 103 MMOL/L (99-107); CREATININE 0.79 MG/DL (0.40-0.90); GLUCOSE 131 MG/DL (70-104); POTASSIUM 4.5 MMOL/L (3.5-5.1); SODIUM 139 MMOL/L (135-145); TOTAL CARBON DIOXIDE 28.6 MMOL/L (24-32); eGFR 73 ML/MIN
--- NOTE | 2021-08-03 06:32 | NUR ---
Problems reprioritized. Patient report given, questions answered & plan of care reviewed with Avril OTT .
[2021-08-03 07:00] VITALS: BP 124/76
--- NOTE | 2021-08-03 07:55 | NUR ---
Patient in room PCU 3022. I have received report from Tati OTT and had the opportunity to ask questions and assume patient care. Pt semi fowlers in bed, verbal, one person stand by assisted to bathroom. sternal precautions maintained. safety/sternal precaution education completed. pt verbalized understanding. no s/sx acute distress
[2021-08-03] MEDS: potassium Cl 20 mEq SR tablet PO SCH (08:00)
[2021-08-03] MEDS: sennosides/docusate sodium tablet PO SCH (08:00)
[2021-08-03] MEDS: magnesium Cl slow-release 64mg tablet PO SCH (08:00)
[2021-08-03 08:28] VITALS: BP_SYST 126
[2021-08-03] MEDS: pantoprazole 40mg Tablet.DR PO SCH (08:28)
[2021-08-03] MEDS: PARoxetine 20mg tablet PO SCH (08:28)
[2021-08-03] MEDS: amiodarone 200mg tablet PO SCH (08:28)
[2021-08-03] MEDS: lactobacillus rhamnosus 10,000 MMU CELLS/CAPSULE PO SCH (08:28)
[2021-08-03] MEDS: apixaban 5mg tablet PO SCH (08:28)
[2021-08-03] MEDS: metoprolol tartrate 12.5mg (1/2 tablet) PO SCH (08:28)
[2021-08-03] MEDS: busPIRone 15mg tablet PO SCH (08:28)
[2021-08-03] MEDS: aspirin 325mg tablet, delayed-release (Ecotrin) PO SCH (08:29)
[2021-08-03] MEDS: lactose-reduced food (Ensure High Protein) 237ml bottle PO SCH ×2 (08:35→13:00)
[2021-08-03] MEDS ORDERED: HYDR-3972 PO (09:17)
[2021-08-03] MEDS ORDERED: APIX5TAB3 PO (09:17)
[2021-08-03] MEDS: HYDROcodone/acetaminophen 10/325mg tab PO PRN (12:16)
--- NOTE | 2021-08-03 17:31 | NUR ---
Pt stable for discharge per MD order. PIV discontinued. cannula intact. monitor worker discontinued. follow up appointment will be scheduled by pt. all discharge instructions explained, all questions answered. new Rx escripted to ariela benitez on [facility] in [place]. pt belongings collected. pt wheeled to the [employer], accompanied by her boyfriend and loaded into private vehicle and left. pt let without s/sx acute distress Addendum: 08/03/21 at 1735 by Avril Pham RN pt discharged at 1605
== END 2021-08-03 16:05 | disposition home or self-care (01) | DRG 219 ==
LOC: UNDOADMIN 05:08 → PAS IN 05:08 → ICU 2S 12:10 → PAS IN 12:56 → PCU 3S 08-01 12:06
PROVIDERS: ADMIT Thoracic Surgery (Cardiothoracic Vascular Surgery); ATTEND Thoracic Surgery (Cardiothoracic Vascular Surgery)
PROC: 02580ZZ Destruction of Conduction Mechanism, Open Approach (ICD-10-PCS; 2021-07-29)
PROC: 5A1221Z Performance of Cardiac Output, Continuous (ICD-10-PCS; 2021-07-29)
PROC: B24CZZ4 Ultrasonography of Pericardium, Transesophageal (ICD-10-PCS; 2021-07-29)
PROC: 02RG08Z Replacement of Mitral Valve with Zooplastic Tissue, Open Approach (ICD-10-PCS; principal; 2021-07-29 08:09)
DX: I34.0 Nonrheumatic mitral (valve) insufficiency (principal); I49.01 Ventricular fibrillation; I47.2 Ventricular tachycardia; I11.0 Hypertensive heart disease with heart failure; I50.9 Heart failure, unspecified; I27.20 Pulmonary hypertension, unspecified; I44.1 Atrioventricular block, second degree; I48.0 Paroxysmal atrial fibrillation
CPT/HCPCS: 36415; 36600; 71045; 71046; 76376; 80048; 80053; 81003; 82330; 82435; 82803; 82947; 82948; 83036; 83735; 84100; 84132; 84295; 85007; 85008; 85018; 85025; 85347; 85384; 85610; 85730; 86885; 86900; 86901; 86920; 87081; 93005; 93312; 93325; 94002; 94003; 94640; 94667; 94668; 94760; 97110; 97116; 97161; 97530; A4618; A6258; A6449; A7000; A7048; C1751; C9113; G0378; J0131; J0171; J0690; J1250; J1265; J1644; J1815; J1940; J2001; J2060; J2250; J2270; J2370; J2405; J2720; J2930; J3370; J3475; J3480; J3490; J7030; J7040; J7050; J7060; J7120; J7626; P9045; P9047; U0003; U0005

== ENCOUNTER 2021-08-22 13:56 | Outpatient (CLI) | payer MEDICARE, BC ==
[~2021-08-22 13:56] MED LIST changes: +APIX5TAB3 PO; -FURO-150 PO; +HYDR-3972 PO; -ringers solution, lacted 1,000 ML IV SCH
== END 2021-08-22 23:59 | disposition home or self-care (01) ==
LOC: RAD 13:56
PROVIDERS: ATTEND Thoracic Surgery (Cardiothoracic Vascular Surgery)
DX: I51.7 Cardiomegaly (principal); J18.8 Other pneumonia, unspecified organism
CPT/HCPCS: 71046; 93005